=== PATIENT | male | born 2005 | race Caucasian/White ===

== ENCOUNTER 2024-03-06 13:51 | Outpatient (CLI) | payer OTHER | END 2024-03-06 13:52 | disposition home or self-care (01) | LOC: SCSMRI 13:51 | PROVIDERS: ATTEND Orthopaedic Surgery | DX: S53.442A Ulnar collateral ligament sprain of left elbow, initial encounter (principal); M25.522 Pain in left elbow; R60.0 Localized edema; M24.222 Disorder of ligament, left elbow ==